=== PATIENT | female | born 1940 | race Caucasian/White ===

== ENCOUNTER 2017-10-15 15:59 | Outpatient (CLI) | END 2017-10-15 16:00 | disposition home or self-care (01) | LOC: LAB 15:59 | PROVIDERS: ATTEND Emergency Medicine | DX: N39.0 Urinary tract infection, site not specified (principal) | CPT/HCPCS: 36415; 81001; 87086 ==

== ENCOUNTER 2017-11-06 14:38 | Outpatient (CLI) | END 2017-11-06 14:39 | disposition home or self-care (01) | LOC: NONPT 14:38 | PROVIDERS: ATTEND Internal Medicine Infectious Disease | DX: N39.0 Urinary tract infection, site not specified (principal); B95.2 Enterococcus as the cause of diseases classified elsewhere; B96.89 Other specified bacterial agents as the cause of diseases classified elsewhere; Z16.24 Resistance to multiple antibiotics | CPT/HCPCS: 81001; 87086; 87186 ==

== ENCOUNTER 2017-11-10 15:14 | Outpatient (CLI) | END 2017-11-10 15:15 | disposition home or self-care (01) | LOC: NONPT 15:14 | PROVIDERS: ATTEND Family Medicine | DX: Z51.81 Encounter for therapeutic drug level monitoring (principal); Z79.01 Long term (current) use of anticoagulants | CPT/HCPCS: 85025 ==

== ENCOUNTER 2017-11-10 18:58 | Outpatient (CLI) | END 2017-11-10 18:59 | disposition short-term general hospital (02) | LOC: AMBL 18:58 | PROVIDERS: ATTEND Internal Medicine | DX: R79.9 Abnormal finding of blood chemistry, unspecified (principal); Z99.81 Dependence on supplemental oxygen ==

== ENCOUNTER 2017-12-09 11:23 | Outpatient (CLI) | payer OTHER | END 2017-12-09 11:24 | LOC: AMBL 11:23 | PROVIDERS: ATTEND Emergency Medicine | DX: R53.1 Weakness (principal); L89.899 Pressure ulcer of other site, unspecified stage; R82.90 Unspecified abnormal findings in urine; Z16.21 Resistance to vancomycin; R47.9 Unspecified speech disturbances; Z74.09 Other reduced mobility; Z99.81 Dependence on supplemental oxygen; Z93.1 Gastrostomy status ==